=== PATIENT | male | born 1985 | race Hispanic/Latino ===

== ENCOUNTER → 2017-03-07 | Outpatient (CLI) | payer OTHER ==
[2017-03-07 17:47] LABS: MEAN CORPUSCULAR HEMOGLOBIN 30.7 pg (27.0-33.0); MEAN CORPUSCULAR HGB CONC 33.9 g/dl (32.0-36.5); MEAN CORPUSCULAR VOLUME 90.6 fl (80.0-96.0); RED CELL DISTRIBUTION WIDTH 12.5 % (11.5-14.5); WHITE BLOOD COUNT 7.2 K/mm3 (4.0-10.0)
[2017-03-07 19:07] LABS: FOLLICLE STIMULATING HORMONE 2.7 mIU/mL (1.4-18.1); LUTEINIZING HORMONE 3.7 mIU/mL (1.5-9.3)
[2017-03-07 19:30] LABS: ALBUMIN 3.7 GM/DL (3.2-5.2); ALBUMIN/GLOBULIN RATIO 1.16 (1.00-1.93); ALKALINE PHOSPHATASE 51 U/L (45-117); ALT/SGPT 132 U/L (12-78); ANION GAP 5 MEQ/L (8-16); AST/SGOT 97 U/L (15-37); BILIRUBIN,TOTAL 0.4 MG/DL (0.2-1.0); BLOOD UREA NITROGEN 18 MG/DL (7-18); CALCIUM LEVEL 9.2 MG/DL (8.5-10.1); CARBON DIOXIDE LEVEL 29 MEQ/L (21-32); CHLORIDE LEVEL 108 MEQ/L (98-107); CREATININE FOR GFR 0.99 MG/DL (0.70-1.30); GLOMERULAR FILTRATION RATE > 60.0 (>60); GLUCOSE, FASTING 75 MG/DL (70-105); POTASSIUM SERUM 4.4 MEQ/L (3.5-5.1); SODIUM LEVEL 142 MEQ/L (136-145); TOTAL PROTEIN 6.9 GM/DL (6.4-8.2)
[2017-03-07 22:21] LABS: PROLACTIN 588.3 NG/ML (2.1-17.7)
== END ==
LOC: M SMT 13:11
PROVIDERS: ATTEND Urology
DX: E29.1 Testicular hypofunction (principal)

== ENCOUNTER → 2017-03-13 | Outpatient (CLI) | payer OTHER ==
--- NOTE | 2017-03-13 13:45 | REP ---
MR BRAIN WITHOUT AND WITH CONTRAST: HISTORY: Pituitary hyperfunction. CONTRAST: ProHance 9 mL. There are no areas of abnormal signal intensity in the brain parenchyma. There is no intraparenchymal hemorrhage, infarct, or midline shift. The ventricular system is normal in appearance. There is no extracerebral collection. A 1.4 cm mass that is decreased in signal intensity on contrast enhanced T1-weighted images is present in the pituitary gland. This represents a macroadenoma. There is minimal extension into the suprasellar cistern. There is deviation of the infundibulum to the left. The cavernous sinuses, optic chiasm, and hypothalamus are normal in appearance. The sinuses are clear. 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 Signed by Humble Garcia MD 03/13/2017 02:05 P
== END ==
LOC: M RAD 12:16
PROVIDERS: ATTEND Nurse Practitioner Women's Health
DX: E22.9 Hyperfunction of pituitary gland, unspecified (principal)
CPT/HCPCS: 70553; A9576

== ENCOUNTER → 2017-05-22 | Outpatient (REF) | payer OTHER ==
[2017-05-22 17:20] LABS: LUTEINIZING HORMONE 2.1 mIU/mL (1.5-9.3)
[2017-05-22 21:06] LABS: PROLACTIN 370.1 NG/ML (2.1-17.7)
== END ==
LOC: M LABDRAW1 15:05
PROVIDERS: ATTEND Internal Medicine Endocrinology, Diabetes & Metabolism
DX: D35.2 Benign neoplasm of pituitary gland (principal)

== ENCOUNTER → 2017-08-13 | Outpatient (CLI) | payer OTHER ==
[2017-08-13 20:01] LABS: PROLACTIN 30.6 NG/ML (2.1-17.7)
== END ==
LOC: M WUC 15:41
PROVIDERS: ATTEND Internal Medicine Endocrinology, Diabetes & Metabolism
DX: D35.2 Benign neoplasm of pituitary gland (principal)

== ENCOUNTER → 2019-09-17 | Outpatient (CLI) | payer OTHER ==
[~2019-09-17] MED LIST: PROHANCE 279.3MG/ML 5ML VIAL (A9576) As Ordered ONE
--- NOTE | 2019-09-17 09:37 | REP ---
MRI brain/pituitary: 09/17/2019. Indication: Pituitary neoplasm. Comparison: 03/13/2017. Technique: Short and long TR sequences of the brain/pituitary were performed including post-gadolinium imaging. 8 ml of IV ProHance were administered. Findings: There is no significant pituitary or suprasellar mass. The infundibulum is midline. The cavernous sinuses are unremarkable. There are no areas of pathologic gadolinium enhancement. There is no intracranial mass effect, hydrocephalus or significant intracranial hemorrhage. No significant signal abnormalities are present within the brainstem or brain parenchyma. There are no areas of restricted diffusion. 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 No pituitary neoplasm is currently present. Electronically Signed by Jerome Yee DO 09/17/2019 09:28 A
== END ==
LOC: M RAD 08:07
PROVIDERS: ATTEND Nurse Practitioner Family
DX: D35.2 Benign neoplasm of pituitary gland (principal)
CPT/HCPCS: 70553; A9576